=== PATIENT | female | born 1985 | race Two or more races ===

== ENCOUNTER 2023-06-11 00:41 | Emergency (ER) | payer MEDICAID ==
[~2023-06-11] VITALS: Ht 162.6 cm; Wt 64.0 kg
[2023-06-11 01:15] VITALS: BP 130/89; TEMP 98.9; O2SAT 98
[2023-06-11] MEDS ORDERED: LORAZEPAM INJ 2 MG/ML VIAL ONE (01:41)
[2023-06-11] MEDS: LORAZEPAM INJ 2 MG/ML VIAL IM ONE (01:50)
[2023-06-11] MEDS ORDERED: LORA-259 PO (02:22)
== END 2023-06-11 02:35 | disposition home or self-care (01) ==
LOC: ER 00:46
DX: F41.0 Panic disorder [episodic paroxysmal anxiety] (principal); F41.9 Anxiety disorder, unspecified
CPT/HCPCS: 99283; 96372; J2060